=== PATIENT | female | born 1940 | race Caucasian/White ===

== ENCOUNTER 2017-08-28 14:53 | Emergency (ER) | payer OTHER ==
[~2017-08-28] VITALS: Ht 160 cm; Wt 65.3 kg
[2017-08-28 14:53] VITALS: BP_SYST 166
--- NOTE | 2017-08-28 15:35 | NUR ---
Dr. Conde seeing pt in triage.
--- NOTE | 2017-08-28 15:50 | NUR ---
Patient given written and verbal discharge instructions and verbalizes understanding. ER MD discussed with patient the results and treatment provided. Patient in stable condition. ID arm band removed. Rx of [place] given. Patient educated on pain management and to follow up with PMD. Pain Scale 3/10. Opportunity for questions provided and answered.
== END 2017-08-28 15:52 | disposition home or self-care (01) ==
LOC: SED 14:53
DX: M25.511 Pain in right shoulder (principal); I10 Essential (primary) hypertension
CPT/HCPCS: 71046-TC; 73030; 99284

== ENCOUNTER 2019-02-23 00:34 | Emergency (ER) | payer OTHER ==
[~2019-02-23] VITALS: Ht 165.1 cm; Wt 67.6 kg
[2019-02-23 01:15] VITALS: BP_SYST 183
--- NOTE | 2019-02-23 01:15 | NUR ---
Patient to ER bed 4 to gown for evaluation. Side rails up. Report received from RICHARD Ferrara.
--- NOTE | 2019-02-23 01:18 | NUR ---
Pt was complaining of issues with her prolapsed uterus. Pt states she was "diagnosed with uterine prolapse for years." Per pt she noticed that there was bleeding last week and noticed some changes. Pt states she is able to sit down properly without having pain. Per pt, "I feel better, but I'm just not used to it not being there." Pt denies, N/V, fever or pain. No other injuries/complaints per patient or noted.
--- NOTE | 2019-02-23 01:35 | NUR ---
Pelvic exam performed by Dr. Fenton with RICHARD Jones. at bedside for entire examination. Patient tolerated procedure well. Patient assisted to position of comfort after examination.
[2019-02-23 02:00] VITALS: BP_SYST 156
--- NOTE | 2019-02-23 02:00 | NUR ---
Patient given written and verbal discharge instructions and verbalizes understanding. ER MD discussed with patient the results and treatment provided. Patient in stable condition. ID arm band removed. No Rx given. Patient educated on pain management and to follow up with PMD. Pain Scale 0. Opportunity for questions provided and answered. Medication side effect fact sheet provided.
== END 2019-02-23 02:00 | disposition home or self-care (01) ==
LOC: SED 00:34
DX: N81.4 Uterovaginal prolapse, unspecified (principal); I10 Essential (primary) hypertension
CPT/HCPCS: 99281

== ENCOUNTER 2019-04-04 19:24 | Emergency (ER) | payer OTHER ==
[~2019-04-04] VITALS: Ht 162.6 cm; Wt 66.7 kg
--- NOTE | 2019-04-04 19:24 | NUR ---
Abhijit roque in ED - 04/04/19 at 2051 by [email or web address] Patient to ER bed 5 to gown for evaluation. Side rails up.
--- NOTE | 2019-04-04 19:30 | NUR ---
Note undone in EDM - 04/04/19 at 2051 by [email or web address] Pt came to the ED for R lower leg pain after mechanical fall 4 weeks ago. Denies n/v/d or fever. No other complaints/injuries noted. Will cont. to monitor.
[2019-04-04 19:52] VITALS: BP_SYST 124
--- NOTE | 2019-04-04 19:57 | NUR ---
Patient to ER bed 5 to gown for evaluation. Side rails up. Report given to Samantha RAMOS.
--- NOTE | 2019-04-04 20:00 | NUR ---
Pt came to the ED for R lower leg pain after mechanical fall 4 weeks ago. Denies n/v/d or fever. No other complaints/injuries noted. Will cont. to monitor.
--- NOTE | 2019-04-04 20:14 | NUR ---
ER at bedside examining patient.
[2019-04-04] MEDS ORDERED: DIPH-TET-PERTUS Vaccine 0.5 ML VIAL (ADACEL) I.M. ONE (20:45)
--- NOTE | 2019-04-04 20:52 | NUR ---
Medication administered. Pt tolerated well. No adverse reactions noted.
[2019-04-04 21:04] VITALS: BP_SYST 124
--- NOTE | 2019-04-04 21:06 | NUR ---
Patient given written and verbal discharge instructions and verbalizes understanding. ER MD discussed with patient the results and treatment provided. Patient in stable condition. ID arm band removed. IV catheter removed intact and dressing applied, no active bleeding. Rx of Keflex and Acetaminophen given. Patient educated on pain management and to follow up with PMD. Pain Scale 3/10 tolerable for patient . Opportunity for questions provided and answered. Medication side effect fact sheet provided.
== END 2019-04-04 21:04 | disposition home or self-care (01) ==
LOC: SED 19:24
DX: S80.811A Abrasion, right lower leg, initial encounter (principal); I10 Essential (primary) hypertension; W22.8XXA Striking against or struck by other objects, initial encounter; Y93.89 Activity, other specified; Y92.89 Other specified places as the place of occurrence of the external cause; Y99.8 Other external cause status
CPT/HCPCS: 90715; 99283

== ENCOUNTER 2023-02-02 20:23 | Emergency (ER) | payer OTHER ==
[~2023-02-02] VITALS: Ht 162.6 cm; Wt 73.5 kg
[~2023-02-02 20:23] MED LIST: ALBMDI INH; AMOX-426 PO; APIX2.5T PO; DEC1 PO; PROP10TA10 PO
[2023-02-02 20:29] VITALS: BP_SYST 173; PULSE 86; RESP 19; TEMP 98.6; O2SAT 97
[2023-02-02] MEDS ORDERED: ACETAMINOPHEN 500 MG TABLET PO ONE (20:45)
[2023-02-02] MEDS ORDERED: IBUPROFEN 600 MG TABLET PO ONE (20:45)
[2023-02-02] MEDS ORDERED: LIDOCAINE PATCH 5% 1 EA TP ONE (20:45)
[2023-02-02] MEDS ORDERED: ACET-2634 PO (21:52)
[2023-02-02] MEDS ORDERED: LIDO1ADH77 TP (21:52)
[2023-02-02] MEDS ORDERED: IBUP-1969 PO (21:52)
[2023-02-02 22:05] VITALS: BP_SYST 173; PULSE 86; RESP 19; TEMP 98.6; O2SAT 97
== END 2023-02-02 22:05 | disposition home or self-care (01) ==
LOC: SED 20:23
DX: S39.012A Strain of muscle, fascia and tendon of lower back, initial encounter (principal); M54.32 Sciatica, left side; I10 Essential (primary) hypertension; Z79.899 Other long term (current) drug therapy; X58.XXXA Exposure to other specified factors, initial encounter; Y93.89 Activity, other specified; Y92.89 Other specified places as the place of occurrence of the external cause; Y99.8 Other external cause status
CPT/HCPCS: 72110; 99284